=== PATIENT | male | born 2000 | race Caucasian/White ===

== ENCOUNTER 2022-10-05 12:29 | Emergency (ER) | payer OTHER ==
[2022-10-05 12:50] VITALS: BP 115/60
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
== END 2022-10-05 14:04 | disposition home or self-care (01) ==
LOC: ED 12:29
DX: M51.36 Other intervertebral disc degeneration, lumbar region (principal); S09.90XA Unspecified injury of head, initial encounter; S19.9XXA Unspecified injury of neck, initial encounter; S39.92XA Unspecified injury of lower back, initial encounter; V89.2XXA Person injured in unspecified motor-vehicle accident, traffic, initial encounter; Y93.89 Activity, other specified; Y92.411 Interstate highway as the place of occurrence of the external cause
CPT/HCPCS: 99284

== ENCOUNTER 2024-03-21 12:00 | Outpatient (CLI) | payer OTHER ==
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
== END 2024-03-21 12:15 | disposition home or self-care (01) ==
LOC: DI.N 12:00
PROVIDERS: ATTEND Family Medicine
DX: M25.561 Pain in right knee (principal)